=== PATIENT | male | born 1990 | race African-American/Black ===

== ENCOUNTER 2022-07-26 12:01 | Emergency (ER) | payer MEDICAID ==
[~2022-07-26] VITALS: Ht 172.7 cm; Wt 109.0 kg
[2022-07-26] MEDS ORDERED: ONDANSETRON 4MG ODT PO ONE (14:45)
[2022-07-26] MEDS ORDERED: KETOROLAC 30MG/ML VIAL IM ONE (14:45)
[2022-07-26 15:06] VITALS: BP 156/80
[2022-07-26 16:00] LABS: CLARITY URINE CLEAR (CLEAR); COLOR URINE DARK YELLOW (YELLOW); KETONES URINE 2+ (NEGATIVE); LEUKOCYTE ESTERASE URINE TRACE (NEGATIVE); NITRITE URINE NEGATIVE (NEGATIVE); OCCULT BLOOD URINE NEGATIVE (NEGATIVE); PH URINE 5.5 (4.5-8.0); PROTEIN URINE 1+ (NEGATIVE); SPECIFIC GRAVITY URINE 1.037 (1.005-1.030)
[2022-07-26] MEDS ORDERED: IBUP-2029 MT ×3 (17:20→17:33)
[2022-07-26] MEDS ORDERED: CEPH500C2 MT ×3 (17:20→17:33)
== END 2022-07-26 17:40 | disposition home or self-care (01) ==
LOC: ER 12:01
DX: N39.0 Urinary tract infection, site not specified (principal)
CPT/HCPCS: 81003; 87086; 96372; 99283; J1885; Q0162

== ENCOUNTER 2022-07-28 13:48 | Emergency (ER) | payer MEDICAID ==
[~2022-07-28] VITALS: Ht 167.6 cm; Wt 104.5 kg
[~2022-07-28 13:48] MED LIST: CEPH500C2 MT; IBUP-2029 MT
[2022-07-28 13:56] VITALS: BP 169/106
[2022-07-28] MEDS ORDERED: ACETAMINOPHEN 325MG TABLET PO STA (18:17)
[2022-07-28] MEDS ORDERED: SODIUM CHLORIDE 0.9% 1,000 ML IV ONE (18:30)
[2022-07-28] MEDS ORDERED: CEFTRIAXONE 1 G PREMIX 50 ML IV ONE (18:30)
[2022-07-28 19:31] LABS: CLARITY URINE CLEAR (CLEAR); COLOR URINE YELLOW (YELLOW); KETONES URINE NEGATIVE (NEGATIVE); LEUKOCYTE ESTERASE URINE 1+ (NEGATIVE); NITRITE URINE NEGATIVE (NEGATIVE); OCCULT BLOOD URINE NEGATIVE (NEGATIVE); PH URINE 6.5 (4.5-8.0); PROTEIN URINE NEGATIVE (NEGATIVE); SPECIFIC GRAVITY URINE 1.007 (1.005-1.030); UROBILINOGEN URINE 0.2 E.U./dL (0.2-1.0)
[2022-07-28 20:02] LABS: BASOPHILS % 0.5 % (0.0-2.0); EOSINOPHILS % 0.4 % (0.0-5.0); HEMATOCRIT. 41.2 % (42.0-52.0); HEMOGLOBIN. 13.7 g/dL (14.0-18.0); LYMPHOCYTES % 24.2 % (20.0-50.0); MEAN CORPUSCULAR HEMOGLOBIN 32.3 pg (28.0-32.0); MEAN CORPUSCULAR VOLUME 96.9 fL (80.0-94.0); MEAN PLATELET VOLUME 9.4 fl (7.4-10.4); MONOCYTES % 6.2 % (2.0-8.0); NEUTROPHILS % 68.7 % (40.0-76.0); PLATELET 248 x1000/uL (130-400); RED BLOOD CELL COUNT 4.25 mill/uL (4.7-6.1); RED CELL DISTRIBUTION WIDTH 14.9 % (11.6-14.6)
[2022-07-28 20:16] LABS: CHLORIDE 105 mEq/L (98-107)
[2022-07-28 20:52] LABS: HCG SCREEN NEGATIVE
[2022-07-28] MEDS ORDERED: LEVO1.5T37 MT (21:29)
[2022-07-28] MEDS ORDERED: RALT400T MT (21:29)
[2022-07-28] MEDS ORDERED: METR-167 MT (21:29)
[2022-07-28] MEDS ORDERED: EMTR1TAB11 MT (21:29)
[2022-07-28] MEDS ORDERED: DOXY100C5 MT (21:29)
[2022-07-31 05:12] LABS: NEISSERIA GONORRHOEAE NAA Negative (Negative)
== END 2022-07-28 22:28 | disposition home or self-care (01) ==
LOC: ER 13:48
DX: R30.0 Dysuria (principal); T74.21XA Adult sexual abuse, confirmed, initial encounter; X58.XXXA Exposure to other specified factors, initial encounter; F41.9 Anxiety disorder, unspecified; F31.9 Bipolar disorder, unspecified; Z79.899 Other long term (current) drug therapy
CPT/HCPCS: 36415; 74176; 80053; 81003; 84703; 85025; 87491; 87591; 96365; 99284; J0696; J7030